=== PATIENT | female | born 1995 | race Caucasian/White ===

== ENCOUNTER 2017-06-11 16:32 | Emergency (ER) | payer SELFPAY ==
[2017-06-11 16:41] VITALS: BP 112/63; PULSE 75; RESP 16; TEMP 98.7; O2SAT 99
--- NOTE | 2017-06-11 17:51 | PD ---
HPI Chief Complaint: Abdominal Pain Time Seen by Provider: 17:48 Travel History International Travel<30 days: No Contact w/Intl Traveler<30days: No Traveled to known affect area: No History of Present Illness HPI 21-year-old female presents to the ED via EMS after syncopal episode today. She states that she was in her normal state of health today and was woken by her on the floor. She has no recollection of the events before that. She complains of intermittent episodes of palpitations, chest pain, abdominal pain, nausea and vomiting. The patient states that she's been having abdominal pain for the past few months. She denies headache, dizziness, fever, chills, changes in bowel habits, dysuria, hematuria, vaginal discharge. The patient is from [facility] and has been living in the for over a year. She is primarily French speaking but speaks Sudanese. She also complains of feeling as if someone is watching her and anxiety symptoms. She states that she often feels sad and cries very frequently for "no reason." She states that she was seen in [place] 2 months ago and prescribed antibiotics for "a stomach infection." But she has no other pertinent information. The is at bedside and states that he found her down today. He states that he shook her for 5-10 seconds before she roused. He states that she was talking to him but somewhat confused and approximately 30 seconds later passed out again. He states that this lasted 10 seconds before the patient was responsive. Patient denies history of seizures in the past. She denies psychiatric history. She denies known allergies. LMP 06/06/17. [facility] Past Medical History Immunizations Current: Yes ?: Not LMP: THIS WEEK : 0 Social History Alcohol Use: No Tobacco Use: No Substance Use: No Allergies-Medications (Allergen,Severity, Reaction): Coded Allergies: No Known Allergies (Unverified , 06/11/17) Reported Meds & Prescriptions Reported Meds & Active Scripts Active No Active Prescriptions or Reported Medications Review of Systems Except as stated in HPI: all other systems reviewed are Neg Physical Exam Narrative GENERAL: Petite, thin female in no acute distress. PSYCHIATRIC: Occasionally tearful throughout the interview SKIN: Focused skin assessment warm/dry. HEAD: Normocephalic. Atraumatic. EYES: No scleral icterus. No injection or drainage. PERRLA. EOMI. NECK: Supple, trachea midline. No JVD or lymphadenopathy. CARDIOVASCULAR: Regular rate and rhythm without murmurs, gallops, or rubs. Equal pulses in the distal extremities bilaterally. RESPIRATORY: Breath sounds clear and equal bilaterally. No accessory muscle use. GASTROINTESTINAL: Abdomen soft, non-tender, nondistended. Active bowel sounds MUSCULOSKELETAL: No cyanosis, or edema. Patient moves easily from sitting to standing position. NEUROLOGICAL: Awake and alert. Cranial nerves II through XII intact. Motor and sensory grossly within normal limits. Five out of 5 muscle strength in all muscle groups. Normal speech. BACK: Nontender without obvious deformity. No CVA tenderness. Data Data Last Documented VS Vital Signs Date Time Temp Pulse Resp B/P (MAP) Pulse Ox O2 Delivery O2 Flow Rate FiO2 06/11/17 16:41 98.7 75 16 112/63 (79) 99 Orders Orders Complete Blood Count With Diff (06/11/17 17:53) Comprehensive Metabolic Panel (06/11/17 17:53) Lipase (06/11/17 17:53) Lactic Acid (06/11/17 17:53) Prothrombin Time / Inr (Pt) (06/11/17 17:53) Act Partial Throm Time (Ptt) (06/11/17 17:53) Urinalysis - C+S If Indicated (06/11/17 17:53) Iv Access Insert/Monitor (06/11/17 17:53) Ecg Monitoring (06/11/17 17:53) Oximetry (06/11/17 17:53) Ondansetron Inj (Zofran Inj) (06/11/17 18:00) Sodium Chlor 0.9% 1000 Ml Inj (Ns 1000 M (06/11/17 17:53) Sodium Chloride 0.9% Flush (Ns Flush) (06/11/17 18:00) Electrocardiogram (06/11/17 17:53) Ed Urine Pregnancytest Poc (06/11/17 17:53) Ct Brain W/O Iv Contrast(Rout) (06/11/17 ) Chest, Single Ap (06/11/17 ) Ckmb (Isoenzyme) Profile (06/11/17 17:53) Troponin I (06/11/17 17:53) Calcium Carbonate (Oscal) (06/11/17 21:15) Psych Screen (06/11/17 21:45) Labs Laboratory Tests Test 06/11/17 18:00 06/11/17 18:05 Urine Color YELLOW Urine Turbidity HAZY Urine pH 7.0 Urine Specific [place] 1.031 Urine Protein 30 mg/dL Urine Glucose (UA) NEG mg/dL Urine Ketones 80 mg/dL Urine Occult Blood NEG Urine Nitrite NEG Urine Bilirubin NEG Urine Urobilinogen 2.0 MG/DL Urine Leukocyte Esterase NEG Urine WBC 3 /hpf Urine Squamous Epithelial Cells 6 /hpf Urine Mucus MANY /lpf Microscopic Urinalysis Comment CULT NOT INDICATED White Blood Count 9.1 TH/MM3 Red Blood Count 3.90 MIL/MM3 Hemoglobin 11.7 GM/DL Hematocrit 35.1 % Mean Corpuscular Volume 90.0 FL Mean Corpuscular Hemoglobin 30.1 PG Mean Corpuscular Hemoglobin Concent 33.4 % Red Cell Distribution Width 12.7 % Platelet Count 129 TH/MM3 Mean Platelet Volume 11.0 FL Neutrophils (%) (Auto) 34.6 % Lymphocytes (%) (Auto) 56.5 % Monocytes (%) (Auto) 5.8 % Eosinophils (%) (Auto) 2.9 % Basophils (%) (Auto) 0.2 % Neutrophils # (Auto) 3.2 TH/MM3 Lymphocytes # (Auto) 5.2 TH/MM3 Monocytes # (Auto) 0.5 TH/MM3 Eosinophils # (Auto) 0.3 TH/MM3 Basophils # (Auto) 0.0 TH/MM3 CBC Comment AUTO DIFF Differential Total Cells Counted 100 Neutrophils % (Manual) 40 % Band Neutrophils % 1 % Lymphocytes % 51 % Monocytes % 5 % Eosinophils % 3 % Neutrophils # (Manual) 3.7 TH/MM3 Differential Comment FINAL DIFF MANUAL Atypical Lymphocytes % Platelet Estimate LOW Platelet Morphology Comment NORMAL Prothrombin Time 11.4 SEC Prothromb Time International Ratio 1.0 RATIO Activated Partial Thromboplast Time 26.3 SEC Blood Urea Nitrogen 15 MG/DL Creatinine 0.77 MG/DL Random Glucose 77 MG/DL Total Protein 7.4 GM/DL Albumin 3.8 GM/DL Calcium Level 8.2 MG/DL Alkaline Phosphatase 38 U/L Aspartate Amino Transf (AST/SGOT) 20 U/L Alanine Aminotransferase (ALT/SGPT) 15 U/L Total Bilirubin 0.5 MG/DL Sodium Level 139 MEQ/L Potassium Level 3.6 MEQ/L Chloride Level 107 MEQ/L Carbon Dioxide Level 25.4 MEQ/L Anion Gap 7 MEQ/L Estimat Glomerular Filtration Rate 95 ML/MIN Lactic Acid Level 1.0 mmol/L Total Creatine Kinase 59 U/L Troponin I LESS THAN 0.02 NG/ML Lipase 116 U/L MDM Medical Decision Making Medical Screen Exam Complete: Yes Emergency Medical Condition: Yes Differential Diagnosis anxiety versus adjustment disorder versus versus UTI versus anemia versus metabolic derangement versus vasovagal syncope versus other Narrative Course 21-year-old female presents to the ED via EMS after syncopal episode today. She states that she was in her normal state of health today and was woken by her on the floor. She has no recollection of the events before that. She complains of intermittent episodes of palpitations, chest pain, abdominal pain, nausea and vomiting. The patient states that she's been having abdominal pain for the past few months. She endorses low appetite and weight loss over the last 3 or 4 months. She denies headache, dizziness, fever, chills, changes in bowel habits, dysuria, hematuria, vaginal discharge. The patient is from [facility] and has been living in the for over a year. She is primarily French speaking but speaks Sudanese. She also complains of feeling as if someone is watching her and anxiety symptoms. She states that she often feels sad and cries very frequently for "no reason." Patient denies history of seizures, SI, psych history, known allergies. LMP 06/06/17. No concerning abnormalities of the CBC, CMP, coags, UA, lactic acid, chest x-ray , cardiac enzymes, CT brain. Patient was evaluated by the psych screener and endorsed suicidality with a plan to take some pills. We'll keep her on a voluntary status overnight for evaluation by the psychiatrist in the morning. Patient is agreeable with this plan. Please see psych notes for disposition. Scripts No Active Prescriptions or Reported Meds Janna Solano Jun 11, 2017 17:51
[2017-06-11] MEDS ORDERED: SODIUM CHLOR 0.9% 1000 ML INJ 1,000 ML IV SCH (17:53)
[2017-06-11] MEDS ORDERED: SODIUM CHLORIDE 0.9% FLUSH 10 ML FLUSH IV FLUSH PRN (18:00)
[2017-06-11] MEDS ORDERED: ONDANSETRON HCL 4 MG/2 ML VIAL IVP ONE (18:00)
[2017-06-11 18:45] LABS: AUTOMATED NEUTROPHIL # 3.2 TH/MM3 (1.8-7.7); BASOPHIL % 0.2 % (0.0-2.0); EOSINOPHIL # 0.3 TH/MM3 (0-0.4); EOSINOPHIL % 2.9 % (0.0-4.0); HEMATOCRIT 35.1 % (35.0-46.0); HEMOGLOBIN 11.7 GM/DL (11.6-15.3); LYMPH % 56.5 % (9.0-44.0); LYMPHOCYTE # 5.2 TH/MM3 (1.0-4.8); MEAN CORPUSCULAR HEMOGLOBIN 30.1 PG (27.0-34.0); MEAN CORPUSCULAR HGB CONC 33.4 % (32.0-36.0); MONO % 5.8 % (0.0-8.0); MONOCYTE # 0.5 TH/MM3 (0-0.9); NEUT % 34.6 % (16.0-70.0); PLATELET COUNT 129 TH/MM3 (150-450); RED CELL DISTRIBUTION WIDTH 12.7 % (11.6-17.2); WHITE BLOOD COUNT 9.1 TH/MM3 (4.0-11.0)
[2017-06-11 18:51] LABS: BILIRUBIN, URINE NEG (NEG); BLOOD, URINE NEG (NEG); GLUCOSE,URINE NEG (NEG); KETONE, URINE 80 mg/dL (NEG); MUCUS URINE MANY /lpf (OCC); NITRITE,URINE NEG (NEG); SQUAMOUS EPITHELIAL CELL URINE 6 /hpf (0-5); URINE COLOR YELLOW (YELLW/STRAW); URINE LEUKOCYTE ESTERASE NEG (NEG)
[2017-06-11 18:59] LABS: ALBUMIN 3.8 GM/DL (3.4-5.0); ALT (GPT) 15 U/L (10-53); AST (GOT) 20 U/L (15-37); BICARBONATE 25.4 MEQ/L (21.0-32.0); BLOOD UREA NITROGEN 15 MG/DL (7-18); CALCIUM 8.2 MG/DL (8.5-10.1); CHLORIDE 107 MEQ/L (98-107); CREATININE 0.77 MG/DL (0.50-1.00); GLOMERULAR FILTRATION RATE 95 ML/MIN (>89); GLUCOSE,RANDOM 77 MG/DL (74-106); LIPASE 116 U/L (73-393); SODIUM (NA) 139 MEQ/L (136-145)
--- NOTE | 2017-06-11 19:01 | RADRPT ---
EXAM DATE/TIME: 06/11/2017 18:12 [facility] COMPARISON: No previous studies available for comparison. INDICATIONS : Syncopal episode and shortness of breath. MEDICAL HISTORY : None. SURGICAL HISTORY : None. ENCOUNTER: Initial ACUITY: 1 day PAIN SCORE: 0/10 LOCATION: chest FINDINGS: A single view of the chest demonstrates the lungs to be symmetrically aerated without evidence of mas s, infiltrate or effusion. The cardiomediastinal contours are unremarkable. Osseous structures are intact. CONCLUSION: No acute disease. Bang Sanchez MD on June 11, 2017 at 18:59 Board Certified Radiologist. This report was verified electronically.
[2017-06-11 19:03] LABS: ALKALINE PHOSPHATASE 38 U/L (45-117); PROTHROMBIN TIME - PATIENT 11.4 SEC (9.8-11.6); TOTAL BILIRUBIN ADULT 0.5 MG/DL (0.2-1.0); TOTAL PROTEIN 7.4 GM/DL (6.4-8.2); TROPONIN I LESS THAN 0.02 NG/ML (0.02-0.05)
--- NOTE | 2017-06-11 19:10 | RADRPT ---
EXAM DATE/TIME: 06/11/2017 18:39 [facility] COMPARISON: No previous studies available for comparison. INDICATIONS : Syncope. Nausea, vomiting. RADIATION DOSE: 28.63 CTDIvol (mGy) MEDICAL HISTORY : None SURGICAL HISTORY : None. ENCOUNTER: Initial ACUITY: 1 day PAIN SCALE: 0/10 LOCATION: cranial TECHNIQUE: Multiple contiguous axial images were obtained of the head. Using automated exposure control and adj ustment of the mA and/or kV according to patient size, radiation dose was kept as low as reasonably a chievable to obtain optimal diagnostic quality images. DICOM format image data is available electro nically for review and comparison. FINDINGS: CEREBRUM: The ventricles are normal for age. No evidence of midline shift, mass lesion, hemorrhage or acute in farction. No extra-axial fluid collections are seen. POSTERIOR FOSSA: The cerebellum and brainstem are intact. The 4th ventricle is midline. The cerebellopontine angle i s unremarkable. EXTRACRANIAL: The visualized portion of the orbits is intact. SKULL: The calvaria is intact. No evidence of skull fracture. CONCLUSION: Normal examination. Bang Sancehz MD on June 11, 2017 at 19:08 Board Certified Radiologist. This report was verified electronically.
[2017-06-11 19:54] LABS: BANDS 1 % (0-6); LYMPHOCYTES 51 % (9-44); MONOCYTES 5 % (0-8); NEUTROPHIL # MANUAL DIFF 3.7 TH/MM3 (1.8-7.7); POLYS (SEG NEUTROPHILS) 40 % (16-70)
[2017-06-11 20:00] VITALS: BP 110/70; PULSE 78; RESP 16; O2SAT 98
[2017-06-11] MEDS ORDERED: CALCIUM CARBONATE 1.25 GM (CA 500 MG) TAB PO ONE (21:15)
--- NOTE | 2017-06-11 22:03 | PD ---
Data Data Last Documented VS Vital Signs Date Time Temp Pulse Resp B/P (MAP) Pulse Ox O2 Delivery O2 Flow Rate FiO2 06/11/17 16:41 98.7 75 16 112/63 (79) 99 Orders Orders Complete Blood Count With Diff (06/11/17 17:53) Comprehensive Metabolic Panel (06/11/17 17:53) Lipase (06/11/17 17:53) Lactic Acid (06/11/17 17:53) Prothrombin Time / Inr (Pt) (06/11/17 17:53) Act Partial Throm Time (Ptt) (06/11/17 17:53) Urinalysis - C+S If Indicated (06/11/17 17:53) Iv Access Insert/Monitor (06/11/17 17:53) Ecg Monitoring (06/11/17 17:53) Oximetry (06/11/17 17:53) Ondansetron Inj (Zofran Inj) (06/11/17 18:00) Sodium Chlor 0.9% 1000 Ml Inj (Ns 1000 M (06/11/17 17:53) Sodium Chloride 0.9% Flush (Ns Flush) (06/11/17 18:00) Electrocardiogram (06/11/17 17:53) Ed Urine Pregnancytest Poc (06/11/17 17:53) Ct Brain W/O Iv Contrast(Rout) (06/11/17 ) Chest, Single Ap (06/11/17 ) Ckmb (Isoenzyme) Profile (06/11/17 17:53) Troponin I (06/11/17 17:53) Calcium Carbonate (Oscal) (06/11/17 21:15) Psych Screen (06/11/17 21:45) Labs Laboratory Tests Test 06/11/17 18:00 06/11/17 18:05 Urine Color YELLOW Urine Turbidity HAZY Urine pH 7.0 Urine Specific [place] 1.031 Urine Protein 30 mg/dL Urine Glucose (UA) NEG mg/dL Urine Ketones 80 mg/dL Urine Occult Blood NEG Urine Nitrite NEG Urine Bilirubin NEG Urine Urobilinogen 2.0 MG/DL Urine Leukocyte Esterase NEG Urine WBC 3 /hpf Urine Squamous Epithelial Cells 6 /hpf Urine Mucus MANY /lpf Microscopic Urinalysis Comment CULT NOT INDICATED White Blood Count 9.1 TH/MM3 Red Blood Count 3.90 MIL/MM3 Hemoglobin 11.7 GM/DL Hematocrit 35.1 % Mean Corpuscular Volume 90.0 FL Mean Corpuscular Hemoglobin 30.1 PG Mean Corpuscular Hemoglobin Concent 33.4 % Red Cell Distribution Width 12.7 % Platelet Count 129 TH/MM3 Mean Platelet Volume 11.0 FL Neutrophils (%) (Auto) 34.6 % Lymphocytes (%) (Auto) 56.5 % Monocytes (%) (Auto) 5.8 % Eosinophils (%) (Auto) 2.9 % Basophils (%) (Auto) 0.2 % Neutrophils # (Auto) 3.2 TH/MM3 Lymphocytes # (Auto) 5.2 TH/MM3 Monocytes # (Auto) 0.5 TH/MM3 Eosinophils # (Auto) 0.3 TH/MM3 Basophils # (Auto) 0.0 TH/MM3 CBC Comment AUTO DIFF Differential Total Cells Counted 100 Neutrophils % (Manual) 40 % Band Neutrophils % 1 % Lymphocytes % 51 % Monocytes % 5 % Eosinophils % 3 % Neutrophils # (Manual) 3.7 TH/MM3 Differential Comment FINAL DIFF MANUAL Atypical Lymphocytes % Platelet Estimate LOW Platelet Morphology Comment NORMAL Prothrombin Time 11.4 SEC Prothromb Time International Ratio 1.0 RATIO Activated Partial Thromboplast Time 26.3 SEC Blood Urea Nitrogen 15 MG/DL Creatinine 0.77 MG/DL Random Glucose 77 MG/DL Total Protein 7.4 GM/DL Albumin 3.8 GM/DL Calcium Level 8.2 MG/DL Alkaline Phosphatase 38 U/L Aspartate Amino Transf (AST/SGOT) 20 U/L Alanine Aminotransferase (ALT/SGPT) 15 U/L Total Bilirubin 0.5 MG/DL Sodium Level 139 MEQ/L Potassium Level 3.6 MEQ/L Chloride Level 107 MEQ/L Carbon Dioxide Level 25.4 MEQ/L Anion Gap 7 MEQ/L Estimat Glomerular Filtration Rate 95 ML/MIN Lactic Acid Level 1.0 mmol/L Total Creatine Kinase 59 U/L Troponin I LESS THAN 0.02 NG/ML Lipase 116 U/L MDM Supervised Visit with RACHEL: Yes Narrative Course The history, exam, and medical decision-making in the associated mid-level provider note were completed with my assistance. I reviewed and agree with the findings presented. I attest that I had a [id number] encounter with the patient on the same day, and personally performed and documented my assessment and findings in the medical record. *My assessment and Findings: 21 year-old woman who presents to the emergency department with multiple somatic complaints and a syncopal episode. Symmetrically preoccupied but tearful and sad. Initially denied SI, but endorses some suicidality to the psychiatric screener. Multiple social stressors. Medically she looks well, but psychiatric screener would like to keep her for voluntary for evaluation evaluation by psychiatry. No history of mental health problems. Scripts No Active Prescriptions or Reported Meds Long Blair MD Jun 11, 2017 22:03
[2017-06-12 09:30] VITALS: BP 101/60; PULSE 84; RESP 18
--- NOTE | 2017-06-12 16:11 | PD ---
Physical Exam Date Seen by Provider: Jun 12, 2017 Time Seen by Provider: 15:30 Data Data Last Documented VS Vital Signs Date Time Temp Pulse Resp B/P (MAP) Pulse Ox O2 Delivery O2 Flow Rate FiO2 06/12/17 09:30 84 18 101/60 (74) Room Air 06/11/17 20:00 98 06/11/17 16:41 98.7 Orders Orders Complete Blood Count With Diff (06/11/17 17:53) Comprehensive Metabolic Panel (06/11/17 17:53) Lipase (06/11/17 17:53) Lactic Acid (06/11/17 17:53) Prothrombin Time / Inr (Pt) (06/11/17 17:53) Act Partial Throm Time (Ptt) (06/11/17 17:53) Urinalysis - C+S If Indicated (06/11/17 17:53) Iv Access Insert/Monitor (06/11/17 17:53) Ecg Monitoring (06/11/17 17:53) Oximetry (06/11/17 17:53) Ondansetron Inj (Zofran Inj) (06/11/17 18:00) Sodium Chlor 0.9% 1000 Ml Inj (Ns 1000 M (06/11/17 17:53) Sodium Chloride 0.9% Flush (Ns Flush) (06/11/17 18:00) Electrocardiogram (06/11/17 17:53) Ed Urine Pregnancytest Poc (06/11/17 17:53) Ct Brain W/O Iv Contrast(Rout) (06/11/17 ) Chest, Single Ap (06/11/17 ) Ckmb (Isoenzyme) Profile (06/11/17 17:53) Troponin I (06/11/17 17:53) Calcium Carbonate (Oscal) (06/11/17 21:15) Psych Screen (06/11/17 21:45) Diet Regular Basic (06/12/17 Breakfast) Diet Regular Basic (06/12/17 Lunch) Ed Discharge Order (06/12/17 16:11) Labs Laboratory Tests Test 06/11/17 18:00 06/11/17 18:05 Urine Color YELLOW Urine Turbidity HAZY Urine pH 7.0 Urine Specific [place] 1.031 Urine Protein 30 mg/dL Urine Glucose (UA) NEG mg/dL Urine Ketones 80 mg/dL Urine Occult Blood NEG Urine Nitrite NEG Urine Bilirubin NEG Urine Urobilinogen 2.0 MG/DL Urine Leukocyte Esterase NEG Urine WBC 3 /hpf Urine Squamous Epithelial Cells 6 /hpf Urine Mucus MANY /lpf Microscopic Urinalysis Comment CULT NOT INDICATED White Blood Count 9.1 TH/MM3 Red Blood Count 3.90 MIL/MM3 Hemoglobin 11.7 GM/DL Hematocrit 35.1 % Mean Corpuscular Volume 90.0 FL Mean Corpuscular Hemoglobin 30.1 PG Mean Corpuscular Hemoglobin Concent 33.4 % Red Cell Distribution Width 12.7 % Platelet Count 129 TH/MM3 Mean Platelet Volume 11.0 FL Neutrophils (%) (Auto) 34.6 % Lymphocytes (%) (Auto) 56.5 % Monocytes (%) (Auto) 5.8 % Eosinophils (%) (Auto) 2.9 % Basophils (%) (Auto) 0.2 % Neutrophils # (Auto) 3.2 TH/MM3 Lymphocytes # (Auto) 5.2 TH/MM3 Monocytes # (Auto) 0.5 TH/MM3 Eosinophils # (Auto) 0.3 TH/MM3 Basophils # (Auto) 0.0 TH/MM3 CBC Comment AUTO DIFF Differential Total Cells Counted 100 Neutrophils % (Manual) 40 % Band Neutrophils % 1 % Lymphocytes % 51 % Monocytes % 5 % Eosinophils % 3 % Neutrophils # (Manual) 3.7 TH/MM3 Differential Comment FINAL DIFF MANUAL Atypical Lymphocytes % Platelet Estimate LOW Platelet Morphology Comment NORMAL Prothrombin Time 11.4 SEC Prothromb Time International Ratio 1.0 RATIO Activated Partial Thromboplast Time 26.3 SEC Blood Urea Nitrogen 15 MG/DL Creatinine 0.77 MG/DL Random Glucose 77 MG/DL Total Protein 7.4 GM/DL Albumin 3.8 GM/DL Calcium Level 8.2 MG/DL Alkaline Phosphatase 38 U/L Aspartate Amino Transf (AST/SGOT) 20 U/L Alanine Aminotransferase (ALT/SGPT) 15 U/L Total Bilirubin 0.5 MG/DL Sodium Level 139 MEQ/L Potassium Level 3.6 MEQ/L Chloride Level 107 MEQ/L Carbon Dioxide Level 25.4 MEQ/L Anion Gap 7 MEQ/L Estimat Glomerular Filtration Rate 95 ML/MIN Lactic Acid Level 1.0 mmol/L Total Creatine Kinase 59 U/L Troponin I LESS THAN 0.02 NG/ML Lipase 116 U/L [facility] Medical Record Reviewed: Yes Supervised Visit with RACHEL: No Narrative Course 21-year-old female presented yesterday to the emergency room for evaluation of syncope and abdominal pain. She had fall workup including lab work and radiological exams which were all normal. While in the ED, she complained of depression and suicidal ideation but was never [place] acted. Psych screening was initiated to evaluate for depression which she has been struggling with intermittently since being with her . She has multiple life stressors and moved several times across continent and country which exacerbates her depression. Patient has since stated that she is no longer suicidal and would just like to go home and take a shower. She was seen by the psychiatric nurse and given multiple outpatient resources. The nurse spoke to the psychiatrist on -call who agrees patient does not need to be seen emergently by a psychiatrist. She has good home care and follow-up with her who will be able to get her psychiatric care on an outpatient basis. Patient adamantly denies suicidal ideation stating she would never kill herself because of her family. Patient is verbally citlalli to safety. I do not feel patient meets requirement to have her rights taken away from her. He denies any medical complaints at this time. Diagnosis Primary Impression: Adjustment disorder Qualified Codes: F43.21 - Adjustment disorder with depressed mood Referrals: Primary Care Physician Psychiatrist Additional Instruction: Follow-up per recommendations an outpatient resources provided to by the nurse. Return immediately for any worsening symptoms. Scripts No Active Prescriptions or Reported Meds Disposition: 01 DISCHARGE HOME Condition: Stable Diana Zurita Jun 12, 2017 16:11
--- NOTE | 2017-06-13 21:09 | EKG ---
Date Performed: 06/11/2017 Time Performed: 18:30:55 PTAGE: 21 years EKG: Sinus rhythm LOW QRS VOLTAGE IN PRECORDIAL LEADS POSSIBLE RIGHT VENTRICULAR CONDUCTION DELAY NONSPECIFIC T-WAVE A BNORMALITY BORDERLINE ECG NO PREVIOUS TRACING DOCTOR: Janeth Ramirez Interpretating Date/Time 06/13/2017 21:00:04
== END 2017-06-12 17:35 | disposition home or self-care (01) ==
LOC: NEPE 16:32 → NEPJ 06-12 17:35
DX: F43.21 Adjustment disorder with depressed mood (principal); R55 Syncope and collapse; R10.9 Unspecified abdominal pain; R00.2 Palpitations; R11.2 Nausea with vomiting, unspecified; R94.31 Abnormal electrocardiogram [ECG] [EKG]
CPT/HCPCS: 70450; 71010; 80053; 81001; 82550; 83605; 83690; 84484; 84703; 85007; 85027; 85610; 85730; 93005; 96360; 99285; J7030